=== PATIENT | male | born 1945 | race Two or more races ===

== ENCOUNTER 2019-06-09 10:46 | Inpatient (IN) | payer BC, OTHER ==
[~2019-06-09] VITALS: Ht 182.9 cm; Wt 98.7 kg
[2019-06-09 12:10] LABS: Basophils # (auto) 0 uL; Basophils % (auto) 0.3 % (0.0-2.0); Eosinophils # (auto) 0.1 uL; Eosinophils % (auto) 1.8 % (0.0-7.0); Hemoglobin 13.2 g/dL (13.5-17.5); Lymphocytes # (auto) 1.3 uL; Mean Corpuscular Hemoglobin 31.2 pg (28.0-32.0); Mean Corpuscular Hgb Conc. 33.9 g/dL (32.0-36.0); Mean Corpuscular Volume 92.1 fL (80.0-100.0); Monocytes # (auto) 0.7 uL; Neutrophils # (auto) 5.6 uL; Neutrophils % (auto) 71.9 % (37.0-80.0); Platelet Count (auto) 83 10^3/uL (140-450); Red Blood Cells 4.23 10^6/uL (4.5-5.90); Red Cell Distribution Width 14.4 % (11.8-14.3); White Blood Cell 7.8 10^3/uL (4.4-10.8)
[2019-06-09 12:25] LABS: INR 1.01 (0.9-1.15); Partial Thromboplastin Time 27.5 sec (23.64-32.05)
[2019-06-09] MEDS ORDERED: MORPHINE SULF INJ 2 MG/ML SYRINGE 1ML IV ONE ×2 (12:30→17:30)
[2019-06-09] MEDS ORDERED: PROMETHAZINE HCL 25 MG/ML 1ML IV ONE (12:30)
[2019-06-09 12:58] LABS: Alanine Aminotransferase 17 U/L (16-61); Albumin 3.2 g/dL (3.4-5.0); Anion Gap 6 (5-15); Aspartate Aminotransferase 15 U/L (15-37); Calcium 8.4 mg/dL (8.5-10.1); Carbon Dioxide 24 mmol/L (21-32); Chloride 114 mmol/L (98-107); Glucose 109 mg/dL (74-106); Potassium 4.2 mmol/L (3.5-5.1); Sodium 144 mmol/L (136-145)
[2019-06-09 13:03] LABS: Alkaline Phosphatase 74 U/L (45-117); Bilirubin, Total 0.7 mg/dL (0.2-1.0); GFR African American 76 mL/min; GFR Non-African American 63 mL/min; Total Protein 6.5 g/dL (6.4-8.2)
[2019-06-09 14:15] LABS: Urine Bacteria NONE SEEN /hpf (None Seen); Urine Blood 1+ /uL (Negative); Urine Specific Gravity 1.016 (1.001-1.035); Urine WBC 1 /hpf (0 - 3)
[2019-06-09 14:23] LABS: BUN/Creatinine Ratio 20.7; Blood Urea Nitrogen 25 mg/dL (7-18)
[2019-06-09] MEDS ORDERED: ONDANSETRON HCL 4 MG/2 ML VIAL IV ONE (17:30)
[2019-06-09] MEDS ORDERED: NITROGLYCERIN 0.4 MG SL TAB SL PRN (19:15)
[2019-06-09] MEDS ORDERED: MORPHINE SULF INJ 2 MG/ML SYRINGE 1ML IV PRN (19:15)
[2019-06-09 21:30] VITALS: BP 115/60
[2019-06-09] MEDS: GABAPENTIN 300 MG CAP PO SCH (21:58)
[2019-06-09] MEDS: HYDROcodone-ACET 10/325MG TAB PO PRN (21:59)
[2019-06-09 22:00] VITALS: BP 115/60
[2019-06-10] MEDS: CARVEDILOL 3.125 MG TAB PO SCH ×3 (00:25→22:01)
[2019-06-10] MEDS: APIXABAN 5 MG TAB PO SCH ×3 (00:25→22:01)
[2019-06-10] MEDS: ATORVASTATIN 20 MG TAB PO SCH ×2 (00:26→22:00)
[2019-06-10] MEDS ORDERED: APIX5TAB OR (01:10)
[2019-06-10] MEDS ORDERED: CAR125T PO (01:12)
[2019-06-10] MEDS ORDERED: GABA-339 PO (01:13)
[2019-06-10] MEDS ORDERED: VALS40TA2 PO (01:19)
[2019-06-10] MEDS ORDERED: PRAS10TA8 PO ×2 (01:19)
[2019-06-10] MEDS ORDERED: PRE1T PO (01:21)
[2019-06-10] MEDS ORDERED: PRE5T GT (01:21)
[2019-06-10] MEDS ORDERED: LEVO100T8 PO (01:24)
[2019-06-10] MEDS ORDERED: ABAT1INJ SC (01:25)
[2019-06-10] MEDS ORDERED: DOXA4TAB5 PO (01:27)
[2019-06-10] MEDS ORDERED: LANS-34 PO (01:29)
[2019-06-10] MEDS ORDERED: FOLI1TAB6 PO (01:30)
[2019-06-10] MEDS ORDERED: NITR0.4S29 SL (01:33)
[2019-06-10] MEDS ORDERED: HYDR-4833 PO (01:36)
[2019-06-10] MEDS: HYDROcodone-ACET 10/325MG TAB PO PRN ×2 (05:23→15:27)
[2019-06-10 05:32] VITALS: BP 128/66
[2019-06-10 06:42] LABS: Basophils # (auto) 0 uL; Basophils % (auto) 0.5 % (0.0-2.0); Eosinophils # (auto) 0.1 uL; Eosinophils % (auto) 1.4 % (0.0-7.0); Hematocrit 37.7 % (41.0-53.0); Hemoglobin 12.7 g/dL (13.5-17.5); Lymphocytes # (auto) 1.2 uL; Lymphocytes % (auto) 18.2 % (10.0-50.0); Mean Corpuscular Hgb Conc. 33.6 g/dL (32.0-36.0); Mean Corpuscular Volume 92.2 fL (80.0-100.0); Monocytes # (auto) 0.8 uL; Monocytes % (auto) 12.2 % (0.0-12.0); Neutrophils # (auto) 4.6 uL; Neutrophils % (auto) 67.7 % (37.0-80.0); Platelet Count (auto) 75 10^3/uL (140-450); Red Blood Cells 4.09 10^6/uL (4.5-5.90); Red Cell Distribution Width 15.2 % (11.8-14.3); White Blood Cell 6.8 10^3/uL (4.4-10.8)
[2019-06-10] MEDS: LEVOTHYROXINE SODIUM 100 MCG TAB PO SCH (06:52)
[2019-06-10 08:00] VITALS: BP 121/53
[2019-06-10 09:00] VITALS: BP 121/53
[2019-06-10] MEDS: PANTOPRAZOLE 40 MG TAB PO SCH (10:07)
[2019-06-10] MEDS: GABAPENTIN 300 MG CAP PO SCH ×2 (10:07→22:00)
[2019-06-10 12:58] VITALS: BP 138/70
[2019-06-10 17:00] VITALS: BP_SYST 125; BP_SYST 135; BP_SYST 87; BP_DIAS 46; BP_DIAS 62; BP_DIAS 70
[2019-06-10] MEDS: TAMSULOSIN HYDROCHLORIDE 0.4 MG CAP PO SCH (19:04)
[2019-06-10 22:00] VITALS: BP 131/72
[2019-06-10] MEDS: MORPHINE SULF INJ 2 MG/ML SYRINGE 1ML IV PRN (22:00)
[2019-06-11 05:00] VITALS: BP 125/69
[2019-06-11] MEDS: LEVOTHYROXINE SODIUM 100 MCG TAB PO SCH (06:17)
[2019-06-11] MEDS: MORPHINE SULF INJ 2 MG/ML SYRINGE 1ML IV PRN ×4 (06:23→22:13)
[2019-06-11 08:00] VITALS: BP 132/60
[2019-06-11] MEDS: GABAPENTIN 300 MG CAP PO SCH ×2 (09:29→22:12)
[2019-06-11] MEDS: CARVEDILOL 3.125 MG TAB PO SCH ×2 (09:30→22:13)
[2019-06-11] MEDS: PANTOPRAZOLE 40 MG TAB PO SCH (09:30)
[2019-06-11] MEDS: APIXABAN 5 MG TAB PO SCH ×2 (09:31→22:12)
[2019-06-11 12:00] VITALS: BP 126/66
[2019-06-11 16:00] VITALS: BP 135/72
[2019-06-11] MEDS: TAMSULOSIN HYDROCHLORIDE 0.4 MG CAP PO SCH (18:10)
[2019-06-11 20:00] VITALS: BP 135/77
[2019-06-11] MEDS: ATORVASTATIN 20 MG TAB PO SCH (22:12)
[2019-06-12 05:00] VITALS: BP 131/68
[2019-06-12] MEDS: MORPHINE SULF INJ 2 MG/ML SYRINGE 1ML IV PRN ×3 (05:41→17:05)
[2019-06-12 06:43] LABS: Basophils # (auto) 0 uL; Basophils % (auto) 0.4 % (0.0-2.0); Eosinophils # (auto) 0.1 uL; Eosinophils % (auto) 2.2 % (0.0-7.0); Hematocrit 35.9 % (41.0-53.0); Hemoglobin 12.1 g/dL (13.5-17.5); Lymphocytes # (auto) 1.1 uL; Lymphocytes % (auto) 17.7 % (10.0-50.0); Mean Corpuscular Hemoglobin 30.7 pg (28.0-32.0); Mean Corpuscular Hgb Conc. 33.8 g/dL (32.0-36.0); Monocytes # (auto) 0.9 uL; Monocytes % (auto) 13.3 % (0.0-12.0); Neutrophils # (auto) 4.3 uL; Neutrophils % (auto) 66.4 % (37.0-80.0); Nucleated Red Blood Cells % 0.1 %; Platelet Count (auto) 76 10^3/uL (140-450); Red Blood Cells 3.94 10^6/uL (4.5-5.90); Red Cell Distribution Width 14.5 % (11.8-14.3); White Blood Cell 6.5 10^3/uL (4.4-10.8)
[2019-06-12] MEDS: LEVOTHYROXINE SODIUM 100 MCG TAB PO SCH (06:43)
[2019-06-12 07:09] LABS: BUN/Creatinine Ratio 17.6; Calcium 8.5 mg/dL (8.5-10.1); Magnesium 1.8 mg/dL (1.6-2.6); Potassium 4.2 mmol/L (3.5-5.1)
[2019-06-12 09:06] VITALS: BP 136/76
[2019-06-12] MEDS: APIXABAN 5 MG TAB PO SCH (09:59)
[2019-06-12] MEDS: GABAPENTIN 300 MG CAP PO SCH (09:59)
[2019-06-12] MEDS: PANTOPRAZOLE 40 MG TAB PO SCH (09:59)
[2019-06-12] MEDS: CARVEDILOL 3.125 MG TAB PO SCH (09:59)
[2019-06-12 13:00] VITALS: BP 148/97
[2019-06-12 17:00] VITALS: BP 143/79
[2019-06-12] MEDS: TAMSULOSIN HYDROCHLORIDE 0.4 MG CAP PO SCH (18:12)
[2019-07-15] MEDS ORDERED: ATOR1TAB PO (14:50)
[2019-07-15] MEDS ORDERED: CARV3.1240 PO (14:50)
[2019-07-15] MEDS ORDERED: APIX5TAB PO (14:50)
[2019-07-15] MEDS ORDERED: PRE5T PO (14:50)
[2019-07-18] MEDS ORDERED: ASPI81CH43 PO (12:22)
[2019-07-18] MEDS ORDERED: ATOR20TA50 PO (12:22)
[2019-07-18] MEDS ORDERED: CAR125T PO (12:22)
== END 2019-06-12 19:17 | disposition short-term general hospital (02) | DRG 312 ==
LOC: EDBD 10:46 → ER 10:53 → TELE 10:54 → TELE-WESTW 21:20
PROVIDERS: ADMIT Nurse Practitioner Acute Care; ATTEND Internal Medicine
DX: I95.1 Orthostatic hypotension (principal); D68.9 Coagulation defect, unspecified; I13.0 Hypertensive heart and chronic kidney disease with heart failure and stage 1 through stage 4 chronic kidney disease, or unspecified chronic kidney disease; I50.42 Chronic combined systolic (congestive) and diastolic (congestive) heart failure; M54.12 Radiculopathy, cervical region; E03.9 Hypothyroidism, unspecified; G62.9 Polyneuropathy, unspecified; I25.10 Atherosclerotic heart disease of native coronary artery without angina pectoris; N40.0 Benign prostatic hyperplasia without lower urinary tract symptoms; D69.6 Thrombocytopenia, unspecified; I48.2 Chronic atrial fibrillation; N18.2 Chronic kidney disease, stage 2 (mild); E78.5 Hyperlipidemia, unspecified; I67.2 Cerebral atherosclerosis; M19.90 Unspecified osteoarthritis, unspecified site; M75.102 Unspecified rotator cuff tear or rupture of left shoulder, not specified as traumatic; Z82.49 Family history of ischemic heart disease and other diseases of the circulatory system; Z95.1 Presence of aortocoronary bypass graft; Z95.5 Presence of coronary angioplasty implant and graft; Z95.810 Presence of automatic (implantable) cardiac defibrillator; I25.2 Old myocardial infarction; Z79.899 Other long term (current) drug therapy
CPT/HCPCS: 36415; 70450; 71045; 73060; 73090; 80048; 80053; 80061; 81001; 83735; 83880; 84443; 84484; 84702; 85025; 85610; 85652; 85730; 86141; 93306; 93886; 93971; 94761; 96374; 96375; 96376; 97110; 97116; 97163; 97530; G0378; J2405

== ENCOUNTER 2021-06-24 09:38 | Emergency (ER) | payer BC ==
[~2021-06-24] VITALS: Ht 182.9 cm; Wt 105.7 kg
[~2021-06-24 09:38] MED LIST: ASPI81CH43 PO; ATOR20TA50 PO; CAR125T PO; DOXA4TAB6 PO; FOLI1TAB6 PO; GABA-339 PO; HYDR-4833 PO; LANS30CA58 PO; LEVO100T8 PO; NITR0.4S29 SL; PRAS10TA8 PO; PRE5T PO
[2021-06-24] MEDS ORDERED: SODIUM CHLORIDE 0.9% 500 ML IV ONE ×2 (09:45→11:45)
[2021-06-24 10:29] LABS: Basophils # (auto) 0 10 ^3/uL (0-0.2); Basophils % (auto) 0.4 % (0.0-2.0); Eosinophils # (auto) 0.1 10 ^3/uL (0-0.8); Eosinophils % (auto) 1.4 % (0.0-7.0); Hematocrit 36.5 % (41.0-53.0); Lymphocytes # (auto) 1.3 10 ^3/uL (0.4-5.4); Mean Corpuscular Hgb Conc. 32.8 g/dL (32.0-36.0); Mean Corpuscular Volume 91.7 fL (80.0-100.0); Monocytes # (auto) 0.9 10 ^3/uL (0-1.3); Neutrophils # (auto) 6.8 10 ^3/uL (1.6-8.6); Neutrophils % (auto) 74.2 % (37.0-80.0); Nucleated Red Blood Cells % 0.2 %; Red Blood Cells 3.99 10^6/uL (4.5-5.90); Red Cell Distribution Width 16.2 % (11.8-14.3); White Blood Cell 9.2 10^3/uL (4.4-10.8)
[2021-06-24 10:47] LABS: INR 1.1 (0.9-1.15); Partial Thromboplastin Time 26.8 sec (23.6-33.0)
[2021-06-24 16:00] VITALS: BP 118/66
== END 2021-06-24 16:51 | disposition home or self-care (01) ==
LOC: EDBD 09:38 → ER 09:38
DX: R04.0 Epistaxis (principal); I95.9 Hypotension, unspecified; R42 Dizziness and giddiness; I11.0 Hypertensive heart disease with heart failure; I50.9 Heart failure, unspecified; E78.5 Hyperlipidemia, unspecified; E11.9 Type 2 diabetes mellitus without complications; I48.91 Unspecified atrial fibrillation; I25.10 Atherosclerotic heart disease of native coronary artery without angina pectoris; Z85.118 Personal history of other malignant neoplasm of bronchus and lung; Z79.82 Long term (current) use of aspirin; Z79.899 Other long term (current) drug therapy; Z95.1 Presence of aortocoronary bypass graft; Z95.0 Presence of cardiac pacemaker; Z98.890 Other specified postprocedural states
CPT/HCPCS: 36415; 85025; 85610; 85730; 86850; 86900; 86901; 96360; 96361; 99283; J7030

== ENCOUNTER 2023-03-03 11:07 | Inpatient (IN) | payer BC ==
[~2023-03-03] VITALS: Ht 175.3 cm; Wt 93.0 kg
[2023-03-03 11:47] LABS: Basophils # (auto) 0 10 ^3/uL (0-0.2); Basophils % (auto) 0.6 % (0.0-2.0); Eosinophils # (auto) 0.3 10 ^3/uL (0-0.8); Eosinophils % (auto) 4.3 % (0.0-7.0); Hematocrit 37.5 % (41.0-53.0); Hemoglobin 12.1 g/dL (13.5-17.5); Lymphocytes # (auto) 0.9 10 ^3/uL (0.4-5.4); Lymphocytes % (auto) 14.7 % (10.0-50.0); Mean Corpuscular Hemoglobin 30.6 pg (28.0-32.0); Mean Corpuscular Hgb Conc. 32.2 g/dL (32.0-36.0); Mean Corpuscular Volume 95.3 fL (80.0-100.0); Monocytes # (auto) 0.7 10 ^3/uL (0-1.3); Monocytes % (auto) 10.9 % (0.0-12.0); Neutrophils # (auto) 4.4 10 ^3/uL (1.6-8.6); Neutrophils % (auto) 69.5 % (37.0-80.0); Nucleated Red Blood Cells % 0.2 %; Red Blood Cells 3.94 10^6/uL (4.5-5.90); Red Cell Distribution Width 17.2 % (11.8-14.3); White Blood Cell 6.4 10^3/uL (4.4-10.8)
[2023-03-03 12:15] LABS: Albumin 3.2 g/dL (3.4-5.0); Calcium 8.6 mg/dL (8.5-10.1); Potassium 4.4 mmol/L (3.5-5.1)
[2023-03-03 12:18] LABS: Bilirubin, Total 0.4 mg/dL (0.2-1.0); Total Protein 5.7 g/dL (6.4-8.2)
[2023-03-03] MEDS ORDERED: cefTRIAXone 1GM/50ML D5W 50 ML IV ONE (16:30)
[2023-03-03] MEDS ORDERED: AZITHROMYCIN 500MG/ 250ML 250 ML IV ONE (16:30)
[2023-03-03 16:36] LABS: Urine Bacteria NONE SEEN /hpf (None Seen); Urine Blood Negative /uL (Negative); Urine Mucus FEW (None Seen); Urine Specific Gravity 1.021 (1.001-1.035); Urine WBC 1 /hpf (0 - 3)
[2023-03-03] MEDS ORDERED: ACETAMINOPHEN 325 MG TAB PO PRN (23:45)
[2023-03-03] MEDS ORDERED: ONDANSETRON HCL 4 MG/2 ML VIAL IV PRN (23:45)
[2023-03-03] MEDS ORDERED: hydrALAZINE HCL 10 MG TAB PO PRN (23:45)
[2023-03-03] MEDS ORDERED: MORPHINE SULFATE INJ 2 MG/ml SYRG IV PRN (23:45)
[2023-03-03] MEDS ORDERED: HYDROcodone-ACET 5/325MG TAB PO PRN (23:45)
[2023-03-04] MEDS ORDERED: methylPREDNISolone SOD SUCC 40 MG/ML VL IV ONE
[2023-03-04] MEDS ORDERED: levoFLOXacin 500MG 100 ML IV ONE (00:09)
[2023-03-04 01:49] VITALS: BP 107/37
[2023-03-04 05:59] LABS: Basophils # (auto) 0 10 ^3/uL (0-0.2); Basophils % (auto) 0.4 % (0.0-2.0); Eosinophils # (auto) 0.1 10 ^3/uL (0-0.8); Eosinophils % (auto) 0.8 % (0.0-7.0); Hematocrit 38.7 % (41.0-53.0); Hemoglobin 12.7 g/dL (13.5-17.5); Lymphocytes # (auto) 0.4 10 ^3/uL (0.4-5.4); Lymphocytes % (auto) 6.9 % (10.0-50.0); Mean Corpuscular Hemoglobin 31.2 pg (28.0-32.0); Mean Corpuscular Hgb Conc. 32.7 g/dL (32.0-36.0); Mean Corpuscular Volume 95.4 fL (80.0-100.0); Monocytes # (auto) 0.2 10 ^3/uL (0-1.3); Monocytes % (auto) 2.7 % (0.0-12.0); Neutrophils # (auto) 5.8 10 ^3/uL (1.6-8.6); Neutrophils % (auto) 89.2 % (37.0-80.0); Red Blood Cells 4.06 10^6/uL (4.5-5.90); Red Cell Distribution Width 17.4 % (11.8-14.3); White Blood Cell 6.5 10^3/uL (4.4-10.8)
[2023-03-04] MEDS: ALBUTEROL SULF 2.5 MG/0.5ML(0.5%) NEB SOLN NEB SCH ×4 (06:08→17:49)
[2023-03-04 06:37] LABS: Potassium 5.5 mmol/L (3.5-5.1)
[2023-03-04 06:41] LABS: BUN/Creatinine Ratio 23.8 (10.0-20.0); Calcium 8.6 mg/dL (8.5-10.1)
[2023-03-04] MEDS: SODIUM CHLORIDE 0.9% 1,000 ML IV SCH (11:17)
[2023-03-04] MEDS: SODIUM ZIRCONIUM CYCL 10 GM PAK PO SCH ×3 (11:17→22:56)
[2023-03-04 11:25] LABS: Magnesium 2.2 mg/dL (1.6-2.6)
[2023-03-04 11:28] LABS: Phosphorus 4.1 mg/dL (2.5-4.90)
[2023-03-04] MEDS ORDERED: SODIUM CHLORIDE 0.9% 500 ML IV ONE ×2 (11:45)
[2023-03-04] MEDS ORDERED: SODIUM CHLORIDE 0.9% 1,000 ML IV ONE (11:45)
[2023-03-04] MEDS: IPRATROPIUM BROM 0.5 MG/2.5ML INH SOL NEB SCH ×2 (13:45→17:50)
[2023-03-04] MEDS: methylPREDNISolone SOD SUCC 40 MG/ML VL IV SCH ×2 (14:11→22:56)
[2023-03-04] MEDS ORDERED: SODIUM ZIRCONIUM CYCL 10 GM PAK PO ONE (19:15)
[2023-03-04] MEDS: CEFEPIME 1GM/ 50ML 50 ML IV SCH ×2 (20:44→22:57)
[2023-03-04] MEDS ORDERED: cefTRIAXone 1GM/50ML D5W 50 ML IV SCH (21:00)
[2023-03-04] MEDS ORDERED: levoFLOXacin 250MG 50 ML IV SCH (21:00)
[2023-03-04 21:32] LABS: BUN/Creatinine Ratio 22.5 (10.0-20.0); Calcium 8.5 mg/dL (8.5-10.1); Potassium 5.5 mmol/L (3.5-5.1)
[2023-03-04 22:00] VITALS: BP 117/66
[2023-03-04] MEDS ORDERED: DOXYCYCLINE 100 MG TAB/CAP PO SCH (22:00)
[2023-03-04] MEDS ORDERED: ATORVASTATIN 20 MG TAB PO SCH (22:00)
[2023-03-04] MEDS: GABAPENTIN 300 MG CAP PO SCH (22:56)
[2023-03-05] MEDS: ALBUTEROL SULF 2.5 MG/0.5ML(0.5%) NEB SOLN NEB SCH ×4 (00:30→18:32)
[2023-03-05] MEDS: IPRATROPIUM BROM 0.5 MG/2.5ML INH SOL NEB SCH ×4 (00:30→18:32)
[2023-03-05] MEDS: SODIUM CHLORIDE 0.9% 1,000 ML IV SCH (03:40)
[2023-03-05 05:12] VITALS: BP 111/69
[2023-03-05 05:54] LABS: Basophils # (auto) 0 10 ^3/uL (0-0.2); Basophils % (auto) 0.1 % (0.0-2.0); Eosinophils # (auto) 0 10 ^3/uL (0-0.8); Hematocrit 36.1 % (41.0-53.0); Hemoglobin 11.8 g/dL (13.5-17.5); Lymphocytes # (auto) 0.4 10 ^3/uL (0.4-5.4); Lymphocytes % (auto) 6.2 % (10.0-50.0); Mean Corpuscular Hgb Conc. 32.8 g/dL (32.0-36.0); Mean Corpuscular Volume 94.4 fL (80.0-100.0); Monocytes # (auto) 0.2 10 ^3/uL (0-1.3); Neutrophils # (auto) 5.2 10 ^3/uL (1.6-8.6); Neutrophils % (auto) 90.7 % (37.0-80.0); Nucleated Red Blood Cells % 0.2 %; Red Blood Cells 3.82 10^6/uL (4.5-5.90); Red Cell Distribution Width 16.9 % (11.8-14.3); White Blood Cell 5.8 10^3/uL (4.4-10.8)
[2023-03-05 06:12] LABS: Potassium 4.9 mmol/L (3.5-5.1)
[2023-03-05 06:20] LABS: Calcium 8.2 mg/dL (8.5-10.1)
[2023-03-05] MEDS: methylPREDNISolone SOD SUCC 40 MG/ML VL IV SCH ×2 (06:43→14:50)
[2023-03-05] MEDS: SODIUM ZIRCONIUM CYCL 10 GM PAK PO SCH ×2 (06:43→14:51)
[2023-03-05] MEDS ORDERED: LEVOTHYROXINE SODIUM 100 MCG TAB PO SCH (07:00)
[2023-03-05 09:00] VITALS: BP 109/63
[2023-03-05] MEDS ORDERED: ASPirin 81 mg TAB PO SCH (10:00)
[2023-03-05] MEDS ORDERED: predniSONE 5 MG TAB PO SCH (10:00)
[2023-03-05] MEDS ORDERED: PANTOPRAZOLE 40 MG TAB PO SCH (10:00)
[2023-03-05] MEDS: GABAPENTIN 300 MG CAP PO SCH (10:09)
[2023-03-05] MEDS: CEFEPIME 1GM/ 50ML 50 ML IV SCH (11:00)
[2023-03-05 13:00] VITALS: BP 121/78
[2023-03-05 16:41] VITALS: BP 118/67
[2023-03-05] MEDS ORDERED: BACDST PO (17:13)
[2023-03-05 17:33] VITALS: BP 118/67
[2023-03-06] MEDS ORDERED: INSULIN LANTUS (GLARGINE) 1 /0.01ml (100units/ml) SC SCH (10:00)
[2023-03-06] MEDS ORDERED: predniSONE 20 MG TAB PO SCH (10:00)
[2023-03-06 14:15] LABS: Hepatitis C Antibody Negative (Negative)
== END 2023-03-05 18:40 | disposition home or self-care (01) | DRG 177 ==
LOC: ER 11:07 → EDBD 11:07 → TELE 23:52 → TELE-WESTW 03-04 23:30
PROVIDERS: ADMIT Nurse Practitioner Family; ATTEND Internal Medicine
DX: J15.6 Pneumonia due to other Gram-negative bacteria (principal); J96.00 Acute respiratory failure, unspecified whether with hypoxia or hypercapnia; E44.1 Mild protein-calorie malnutrition; J44.0 Chronic obstructive pulmonary disease with (acute) lower respiratory infection; J44.1 Chronic obstructive pulmonary disease with (acute) exacerbation; I13.0 Hypertensive heart and chronic kidney disease with heart failure and stage 1 through stage 4 chronic kidney disease, or unspecified chronic kidney disease; N17.9 Acute kidney failure, unspecified; J15.9 Unspecified bacterial pneumonia; I50.9 Heart failure, unspecified; I48.91 Unspecified atrial fibrillation; E03.9 Hypothyroidism, unspecified; E78.5 Hyperlipidemia, unspecified; E87.5 Hyperkalemia; N18.9 Chronic kidney disease, unspecified; R91.1 Solitary pulmonary nodule; M06.9 Rheumatoid arthritis, unspecified; J84.10 Pulmonary fibrosis, unspecified; I25.10 Atherosclerotic heart disease of native coronary artery without angina pectoris; Z95.1 Presence of aortocoronary bypass graft; Z82.49 Family history of ischemic heart disease and other diseases of the circulatory system; Z95.0 Presence of cardiac pacemaker; Z68.30 Body mass index [BMI] 30.0-30.9, adult
CPT/HCPCS: 36415; 36600; 71045; 74176; 80048; 80053; 81001; 82805; 83605; 83735; 84100; 84484; 85025; 85652; 86038; 86431; 86803; 87040; 87070; 87205; 87340; 93005; 94640; 96361; 96365; 96366; 96367; 96375; 96376; G0378; J0696; J1956